=== PATIENT | female | born 1985 | race Caucasian/White ===

== ENCOUNTER 2021-11-29 21:14 | Emergency (ER) | payer OTHER | END 2021-11-29 22:29 | disposition home or self-care (01) | LOC: MADERS 21:14 | DX: L50.0 Allergic urticaria (principal) | CPT/HCPCS: 99282 ==

== ENCOUNTER 2022-04-20 17:49 | Emergency (ER) | payer OTHER ==
[2022-04-20] MEDS ORDERED: Bacitracin 1 PK ONE (18:01)
[2022-04-20] MEDS ORDERED: Lidocaine 1% (PF) 30 ML VIAL ONE (18:01)
[2022-04-20] MEDS ORDERED: Boostrix 0.5 ML (Tdap) VIAL ONE (18:02)
[2022-04-20] MEDS ORDERED: Sterile Water 10 ML ONE (19:47)
[2022-04-20] MEDS ORDERED: CEFAZOLIN 2 GM VIAL ONE (19:47)
== END 2022-04-20 20:11 | disposition home or self-care (01) ==
LOC: MADERS 17:49
DX: S62.632B Displaced fracture of distal phalanx of right middle finger, initial encounter for open fracture (principal); W22.8XXA Striking against or struck by other objects, initial encounter
CPT/HCPCS: 12004; 90471; 90715; 96372; J0690; J2001

== ENCOUNTER 2024-09-06 14:15 | Emergency (ER) | payer OTHER ==
[2024-09-06 15:17] LABS: Bilirubin Negative (Negative); Blood, Urine Large (Negative); Glucose, Urine (Dipstick) Negative (Negative); Ketone, Urine Trace mg/dL (Negative); Leukocyte Small (Negative); Nitrite Negative (Negative); Protein, Urine (Dipstick) 100 mg/dL (Neg-Trace); pH, Urine 7.5 (5.0-9.0)
[2024-09-06 15:24] LABS: Clarity Cloudy (Clear); Pregnancy Test - Urine (BHCG) Negative (Negative); Pregu Control Background? CLEAR/WHITE (CLR/WHITE); Pregu Control Bar Appear? YES (CONTROL BAR)
[2024-09-06 15:29] LABS: Bacteria/HPF 1+ HPF (None Seen); CAUTI Indications for Culture Dysuria,urgency,freq; RBC/HPF Greater than 50 HPF (0-3); WBC/HPF Greater Than 50 HPF (0-3)
[2024-09-06 15:31] LABS: Urine Culture Reflex Yes Yes
== END 2024-09-06 15:43 | disposition home or self-care (01) ==
LOC: MADERS 14:15
DX: N39.0 Urinary tract infection, site not specified (principal)
CPT/HCPCS: 81001; 81025; 87086; 99283

== ENCOUNTER 2025-02-21 12:23 | Emergency (ER) | payer SELFPAY ==
[2025-02-21] MEDS ORDERED: Cephalexin 500 MG CAP ONE (12:55)
== END 2025-02-21 12:55 | disposition home or self-care (01) ==
LOC: MADERS 12:23
DX: R21 Rash and other nonspecific skin eruption (principal)
CPT/HCPCS: 99282